=== PATIENT | female | born 1955 | race Caucasian/White ===

== ENCOUNTER 2017-03-14 09:06 | Emergency (ER) | payer BC ==
--- NOTE | 2017-03-14 10:09 | ERNOTE ---
Lower Extremity HPI - General Time Seen by Provider: 03/14/17 09:32 Source: patient Exam Limitations: no limitations - Immun/Allergies/Home Medications Immunizations: IMMUNIZATION HX Immunizations Up to Date Yes History of Influenza Vaccine Yes Hx Pneumococcal Vaccination No Allergies/Adverse Reactions: Allergies Allergy/AdvReac Type Severity Reaction Status Date / Time No Known Allergies Allergy Unverified 03/14/17 09:16 Home Medications: HOME MEDICATIONS Ibuprofen [Motrin] 800 mg PO TID PRN #30 tablet 03/14/17 [Last Taken Unknown] - History of Present Illness Narrative: Patient stepped the wrong way last night and took a fall hurting her right foot and ankle. She did not present to any emergency room last night she came in this morning. She is unable to bear weight on her right lower extremity due to pain in her right ankle and right foot. Review of Systems - Review of Systems Constitutional: Present: no symptoms reported EYE: Present: no symptoms reported ENT: Present: no symptoms reported Respiratory: Present: no symptoms reported Cardiology: Present: claudication Musculoskeletal: Present: See HPI - Patient's Past Medical History Patient History - Medical: No pertinent hx Patient History - Cardiac/Respiratory: No pertinent hx Patient History - Cancer: No Hx of Cancer Patient History - Surgical Procedures: Other Patient History - Other: None LMP (females 10-50): Menopausal - Social History Living Situations: spouse Abuse History: No History of abuse Psych History: No pertinent hx Smoking Status: Never smoker Have you smoked in the past 12 months: No Do you dip or chew tobacco: No Alcohol Use: occasionally Drug Use: none - Immunizations Immunizations Up to Date: Yes Hx Pneumococcal Vaccination: No History of Influenza Vaccine: Yes Physical Exam - Physical Exam General Appearance: Present: wd/wn, alert, no apparent distress Head Exam: Present: normal inspection Ears, Nose, Throat: Present: normal ENT inspection Respiratory: Present: no respiratory distress, normal breath sounds, no accessory muscle use, chest nontender, lungs clear Cardiovascular/Chest: Present: regular rate, rhythm, no murmur Extremity Exam: Present: normal inspection, other - or does not appear to be any swelling or ecchymosis however the patient is exquisitely tender upon palpation of the lateral malleolus on the right side. I do not appreciate any joint swelling. ED Progress - Results and Orders Patient's Lab Results:: I have reviewed the patient's lab results. - Vital Signs Patient's Vital Signs:: I have reviewed the patient's vital signs. Vital Signs: Vital Signs 03/14/17 09:09 Temperature 36.4 C L Pulse Rate 65 Respiratory 14 Rate Blood Pressure 115/57 O2 Sat by Pulse 100 Oximetry - X-Ray X-Ray #1 X-Ray: ankle - Progress/Reassessment Chief Complaint: Foot Injury/Pain Plan - Plan Plan: X-ray of the right ankle reveals a spiral fracture of the distal fibula at this time the patient will be placed in an OCL given crutches and have her follow up with [facility] or primary care physician. Departure Clinical Impression: Fracture of distal end of right fibula Qualifiers: Encounter type: initial encounter Fracture type: closed Fracture morphology: unspecified fracture morphology Qualified Code(s): S82.831A - Other fracture of upper and lower end of right fibula, initial encounter for closed fracture - Departure Disposition: Home self-care Condition: Good Instructions: Undisplaced Fibular Ankle Fracture Treated With Immobilization, Adult Referrals: Gianna Eden MD [Primary Care Provider] - Prescriptions: Ibuprofen [Motrin] 800 mg PO TID PRN #30 tablet PRN Reason: Pain
[2017-03-14 10:41] VITALS: BP 118/64
== END 2017-03-14 10:36 | disposition home or self-care (01) ==
LOC: ER 09:06
DX: S82.831A Other fracture of upper and lower end of right fibula, initial encounter for closed fracture (principal)